=== PATIENT | male | born 1965 | race Caucasian/White ===

== ENCOUNTER 2018-08-09 23:17 | Emergency (ER) | payer BC ==
[2018-08-09] MEDS ORDERED: LISI20TA29 PO (23:40)
--- NOTE | 2018-08-09 23:40 | ER Report ---
History and Physical Time Seen By MD: 23:39 Hx. of Stated Complaint: stomache pain for 4 or 5 hours HPI/ROS CHIEF COMPLAINT: Epigastric and right upper quadrant pain, nausea HISTORY OF PRESENT ILLNESS: 52-year-old male here for the football game, was tailgating this afternoon. His is at home, vomiting likely secondary to food poisoning. He ate same food. He is complaining of diffuse epigastric and right upper quadrant pain. Patient notes the pain started in the right upper quadrant inspected to the epigastrium. He has severe nausea. It's been coming in waves. He's had no vomiting or diarrhea. She denies history of previous abdominal surgery. Patient denies change in bowel habits or dysuria or hemat uria. REVIEW OF SYSTEMS: Respiratory: No cough, no dyspnea. Cardiovascular: No chest pain, no palpitations. Gastrointestinal: As above Musculoskeletal: No back pain. Allergies: Coded Allergies: No Known Drug Allergies (Unverified , 08/09/18) Home Meds Active Scripts Ondansetron (ZOFRAN ODT) 4 Mg Tab.rapdis, 4 MG PO every 6 hours PRN for NAUSEA/VOMITING, #12 TAB TAKE 1 TABLET BY MOUTH EVERY 12 HOURS Prov:ROBERTOVIKI Haddad DO 08/10/18 Hydrocodone Bit/Acetaminophen (HYDROCODON-ACETAMINOPHEN 5-325) 1 Each Tablet, 1 EACH PO Q4-6H PRN for PAIN, #15 TAKE ONE TABLET BY MOUTH EVERY 4-6 HOURS NEEDED FOR PAIN Prov:ROBERTOVIKI Haddad DO 08/10/18 Reported Medications Atorvastatin Calcium (LIPITOR) 40 Mg Tablet, 1 TAB PO QDAY, TAB 08/09/18 Lisinopril (LISINOPRIL) 20 Mg Tablet, 20 MG PO QDAY, TAB 08/09/18 Reviewed Nurses Notes: Yes Old Medical Records Reviewed: Yes Constitutional Vital Sign - Last 24 Hours 08/09/18 08/09/18 08/09/18 08/09/18 23:17 23:32 23:34 23:37 Temp 97.7 Pulse ? 67 Resp 18 B/P (MAP) 185/109 185/109 (134) Pulse Ox 96 O2 Delivery Room Air 08/09/18 08/10/18 08/10/18 08/10/18 23:47 00:00 00:02 00:17 Pulse 71 71 67 B/P (MAP) 175/110 (131) Pulse Ox 96 97 97 08/10/18 08/10/18 08/10/18 08/10/18 00:30 00:32 00:47 00:52 Pulse ? 81 B/P (MAP) 173/108 (129) Pulse Ox 97 95 92 08/10/18 08/10/18 08/10/18 08/10/18 01:00 01:07 01:22 01:30 Pulse 88 84 B/P (MAP) 165/106 (125) 142/95 (111) Pulse Ox 90 94 08/10/18 08/10/18 08/10/18 08/10/18 01:37 01:42 01:57 02:00 Pulse 90 95 84 B/P (MAP) 145/96 (112) Pulse Ox 92 92 90 08/10/18 08/10/18 08/10/18 08/10/18 02:05 02:20 02:30 02:35 Pulse ??? 83 86 B/P (MAP) 142/90 (107) Pulse Ox 91 92 90 08/10/18 08/10/18 02:40 02:55 Pulse 81 87 Pulse Ox 93 94 Intake and Output 08/09/18 08/09/18 08/10/18 15:00 23:00 07:00 Intake Total 1000 ml Balance 1000 ml Physical Exam Vital signs stable, afebrile, pulse ox normal General Appearance: The patient is alert, has no immediate need for airway protection and no current signs of toxicity. Moderate distress, slightly pale appearing, skin warm and dry Eyes: Pupils equal and round no injection. Respiratory: Chest is non tender, lungs are clear to auscultation. Cardiac: regular rate and rhythm Gastrointestinal: Abdomen is soft, moderate right upper quadrant tenderness with Woods sign, minimal epigastric tenderness, no masses, bowel sounds normal. Musculoskeletal: Neck: Neck is supple and non tender. No lymphadenopathy Extremities have full range of motion and are non tender., No edema Skin: No rashes or lesions. DIFFERENTIAL DIAGNOSIS: After history and physical exam differential diagnosis was considered for abdominal pain including but not limited to appendicitis, cholecystitis, gastritis, gastroenteritis, food poisoning, viral syndrome, pancreatitis and urinary tract infection. Medical Decision Making Data Points Result Diagram: 08/10/18 0008 08/10/187 Laboratory Hematology Test 08/09/18 23:35 08/10/18 00:08 Urine Color Yellow Urine Clarity Clear Urine pH 6.0 pH (4.8-9.5) Urine Specific [place] 1.015 Urine Protein Negative mg/dL (NEGATIVE) Urine Glucose (UA) Negative mg/dL (NEGATIVE) Urine Ketones Negative mg/dL (NEGATIVE) Urine Blood Negative (NEGATIVE) Urine Nitrite Negative (NEGATIVE) Urine Bilirubin Negative (NEGATIVE) Urine Urobilinogen 4.0 mg/dL (0.2-1.9) Urine Leukocyte Esterase Negative (NEGATIVE) Urine RBC <1 /HPF (0-2/HPF) Urine WBC <1 /HPF (0-5/HPF) Urine Squamous Epithelial Cells None /LPF (</=FEW) Urine Bacteria Negative /HPF (NONE-FEW) Urine Mucus None /HPF (NONE-FEW) Red Blood Count 4.38 M/uL (4.00-5.60) Mean Corpuscular Volume 96.6 fL (80.0-96.0) Mean Corpuscular Hemoglobin 33.2 pg (26.0-33.0) Mean Corpuscular Hemoglobin Concent 34.3 g/dL (32.0-36.0) Red Cell Distribution Width 12.6 % (11.5-14.5) Mean Platelet Volume 9.2 fL (7.2-11.1) Neutrophils (%) (Auto) 70.5 % (39.4-72.5) Lymphocytes (%) (Auto) 19.3 % (17.6-49.6) Monocytes (%) (Auto) 9.2 % (4.1-12.4) Eosinophils (%) (Auto) 0.7 % (0.4-6.7) Basophils (%) (Auto) 0.3 % (0.3-1.4) Nucleated RBC Relative Count (auto) 0.0 /100WBC Neutrophils # (Auto) 4.5 K/uL (2.0-7.4) Lymphocytes # (Auto) 1.2 K/uL (1.3-3.6) Monocytes # (Auto) 0.6 K/uL (0.3-1.0) Eosinophils # (Auto) 0.0 K/uL (0.0-0.5) Basophils # (Auto) 0.0 K/uL (0.0-0.1) Nucleated RBC Absolute Count (auto) 0.00 K/uL Sodium Level 135 mmol/L (137-145) Potassium Level 3.8 mmol/L (3.5-5.0) Chloride Level 101 mmol/L (98-107) Carbon Dioxide Level 22 mmol/L (22-30) Blood Urea Nitrogen 12 mg/dl (9-21) Creatinine 0.80 mg/dl (0.66-1.25) Glomerular Filtration Rate Calc > 60.0 Random Glucose 125 mg/dl (75-110) Calcium Level 8.5 mg/dl (8.4-10.2) Total Bilirubin 0.8 mg/dl (0.2-1.3) Aspartate Amino Transf (AST/SGOT) 162 U/L (0-35) Alanine Aminotransferase (ALT/SGPT) 140 U/L (0-56) Alkaline Phosphatase 180 U/L (0-126) Total Protein 7.4 g/dl (6.3-8.2) Albumin 3.7 g/dl (3.5-5.0) Amylase Level 69 U/L (0-110) Lipase 264 U/L (23-300) Chemistry Test 08/09/18 23:35 08/10/18 00:08 Urine Color Yellow Urine Clarity Clear Urine pH 6.0 pH (4.8-9.5) Urine Specific [place] 1.015 Urine Protein Negative mg/dL (NEGATIVE) Urine Glucose (UA) Negative mg/dL (NEGATIVE) Urine Ketones Negative mg/dL (NEGATIVE) Urine Blood Negative (NEGATIVE) Urine Nitrite Negative (NEGATIVE) Urine Bilirubin Negative (NEGATIVE) Urine Urobilinogen 4.0 mg/dL (0.2-1.9) Urine Leukocyte Esterase Negative (NEGATIVE) Urine RBC <1 /HPF (0-2/HPF) Urine WBC <1 /HPF (0-5/HPF) Urine Squamous Epithelial Cells None /LPF (</=FEW) Urine Bacteria Negative /HPF (NONE-FEW) Urine Mucus None /HPF (NONE-FEW) White Blood Count 6.4 k/uL (4.5-11.0) Red Blood Count 4.38 M/uL (4.00-5.60) Hemoglobin 14.5 g/dL (14.0-18.0) Hematocrit 42.3 % (42.0-52.0) Mean Corpuscular Volume 96.6 fL (80.0-96.0) Mean Corpuscular Hemoglobin 33.2 pg (26.0-33.0) Mean Corpuscular Hemoglobin Concent 34.3 g/dL (32.0-36.0) Red Cell Distribution Width 12.6 % (11.5-14.5) Platelet Count 105 K/uL (150-450) Mean Platelet Volume 9.2 fL (7.2-11.1) Neutrophils (%) (Auto) 70.5 % (39.4-72.5) Lymphocytes (%) (Auto) 19.3 % (17.6-49.6) Monocytes (%) (Auto) 9.2 % (4.1-12.4) Eosinophils (%) (Auto) 0.7 % (0.4-6.7) Basophils (%) (Auto) 0.3 % (0.3-1.4) Nucleated RBC Relative Count (auto) 0.0 /100WBC Neutrophils # (Auto) 4.5 K/uL (2.0-7.4) Lymphocytes # (Auto) 1.2 K/uL (1.3-3.6) Monocytes # (Auto) 0.6 K/uL (0.3-1.0) Eosinophils # (Auto) 0.0 K/uL (0.0-0.5) Basophils # (Auto) 0.0 K/uL (0.0-0.1) Nucleated RBC Absolute Count (auto) 0.00 K/uL Glomerular Filtration Rate Calc > 60.0 Calcium Level 8.5 mg/dl (8.4-10.2) Total Bilirubin 0.8 mg/dl (0.2-1.3) Aspartate Amino Transf (AST/SGOT) 162 U/L (0-35) Alanine Aminotransferase (ALT/SGPT) 140 U/L (0-56) Alkaline Phosphatase 180 U/L (0-126) Total Protein 7.4 g/dl (6.3-8.2) Albumin 3.7 g/dl (3.5-5.0) Amylase Level 69 U/L (0-110) Lipase 264 U/L (23-300) Urinalysis Test 08/09/18 23:35 Urine Color Yellow Urine Clarity Clear Urine pH 6.0 pH (4.8-9.5) Urine Specific [place] 1.015 Urine Protein Negative mg/dL (NEGATIVE) Urine Glucose (UA) Negative mg/dL (NEGATIVE) Urine Ketones Negative mg/dL (NEGATIVE) Urine Blood Negative (NEGATIVE) Urine Nitrite Negative (NEGATIVE) Urine Bilirubin Negative (NEGATIVE) Urine Urobilinogen 4.0 mg/dL (0.2-1.9) Urine Leukocyte Esterase Negative (NEGATIVE) Urine RBC <1 /HPF (0-2/HPF) Urine WBC <1 /HPF (0-5/HPF) Urine Squamous Epithelial Cells None /LPF (</=FEW) Urine Bacteria Negative /HPF (NONE-FEW) Urine Mucus None /HPF (NONE-FEW) EKG/Imaging Imaging Results: Ultrasound of the ultrasound of the gallbladder was obtained. The results of the study are Limited ultrasound of the abdomen: Indication: Right upper quadrant pain. Technique: Routine imaging, with Doppler. Comparison: None. Gallbladder: Distended, measuring approximately 10.8 cm in length. There appears to be a small amount of sludge in the lumen. No stones are clearly identified. There is no thickening or edema of the wall. Biliary tree: Normal in caliber. The CBD measures less than 4 mm. Liver: Upper limits of normal in size. The right lobe measures approximately 18 cm. There is diffuse increased parenchymal echogenicity, compatible with fatty infiltration. No focal liver lesions are identified. The portal vein is patent with antegrade flow. Pancreas: Not adequately visualized. Spleen: Not evaluated. Kidneys: The right kidney measures 10.9 x 5.5 x 5.2 cm. There is a tiny cortical cyst in the midportion. There is no evidence of solid mass, calculus, or dilatation of the collecting structures. The left kidney was not evaluated. Aorta and IVC: Unremarkable, as visualized. Ascites: None seen. IMPRESSION: The gallbladder is distended. There is a small amount of sludge in the lumen. No stones are clearly identified. The study was read by the radiologist. I viewed the images myself on the PACS system. ED Course/Re-evaluation Clinical Indication for ER IV: Hydration, IV Access ED Course Patient was admitted to an examination room. H&P was done. The differential diagnoses was considered. On clinical examination. Patient has right upper quadrant and epigastric tenderness. He is a Woods sign. His LFTs are eleva joi, but he has no previous labs for comparison. He is also undergoing treatment for hemachromatosis with phlebotomy. Gallbladder ultrasound was performed which showed sludge and a large gallbladder, but no gallbladder wall thickening. His white blood cell count is normal. Patient be discharged home. A conservative treatment plan of clear liquid diet, medication for nausea and pain relief. He's advised to follow-up with his doctor when he returns home in a few days. Likely need a hiatus scan. His old laboratory studies can be compared. On further diagnosis and treatment can be completed by his primary care physician. Decision to Disposition Date: Aug 10, 2018 Decision to Disposition Time: 02:44 Depart Departure Latest Vital Signs Vital Signs Date Time Temp Pulse Resp B/P (MAP) Pulse Ox O2 Delivery O2 Flow Rate FiO2 08/10/18 02:55 87 94 08/10/18 02:30 142/90 (107) 08/09/18 23:34 97.7 18 Room Air Impression: Primary Impression: Right upper quadrant abdominal pain Additional Impressions: Enlarged gallbladder Abnormal LFTs Condition: Improved Disposition: HOME OR SELF-CARE New Scripts Ondansetron (ZOFRAN ODT) 4 Mg Tab.rapdis 4 MG PO every 6 hours PRN for NAUSEA/VOMITING, #12 TAB TAKE 1 TABLET BY MOUTH EVERY 12 HOURS Prov: VIKI MEJIA DO 08/10/18 Hydrocodone Bit/Acetaminophen (HYDROCODON-ACETAMINOPHEN 5-325) 1 Each Tablet 1 EACH PO Q4-6H PRN for PAIN, #15 TAKE ONE TABLET BY MOUTH EVERY 4-6 HOURS NEEDED FOR PAIN Prov: VIKI MEJIA DO 08/10/18 Patient Instructions: Abdominal Pain (ED), Clear Liquid Diet (ED) Additional Instructions: Follow clear liquid diet for 24-48 hours and advance to Joseluis diet, bananas, rice, applesauce and toast Avoid fatty or greasy food Follow-up with your primary care doctor upon returning home. Problem Qualifiers VIKI MEJIA DO Aug 09, 2018 23:40
[2018-08-09] MEDS ORDERED: ATOR40TA24 PO (23:41)
[2018-08-09] MEDS ORDERED: NS(*) 0.9% 1000 ML BAG 1,000 ML IV ONE (23:44)
[2018-08-09] MEDS ORDERED: KETOROLAC 30 MG/ML VIAL IVP ONE (23:45)
[2018-08-09] MEDS ORDERED: ONDANSETRON 4 MG/2 ML VIAL IVP ONE (23:45)
[2018-08-10] MEDS ORDERED: fentaNYL CITR 100 MCG/2 ML AMP IVP ONE (00:30)
[2018-08-10 00:43] LABS: PLATELET COUNT, AUTOMATED 105 K/uL (150-450)
[2018-08-10 02:30] VITALS: BP 142/90
--- NOTE | 2018-08-10 02:30 | RADIOLOGY IMAGING REPORT ---
[place] [facility] [place] NAME: Lynn Grossman : 1965 MR: [id number] V: [id number] EXAM DATE: ORDERING PHYSICIAN: VIKI MEJIA TECHNOLOGIST: Location: [facility] Patient: Lynn Grossman : 1965 Visit/Account:[id number] Date of Sevice: 08/10/2018 Limited ultrasound of the abdomen: Indication: Right upper quadrant pain. Technique: Routine imaging, with Doppler. Comparison: None. Gallbladder: Distended, measuring approximately 10.8 cm in length. There appears to be a small amount of sludge in the lumen. No stones are clearly identified. There is no thickening or edema of the wal l. Biliary tree: Normal in caliber. The CBD measures less than 4 mm. Liver: Upper limits of normal in size. The right lobe measures approximately 18 cm. There is diffuse increased parenchymal echogenicity, compatible with fatty infiltration. No focal liver lesions are id entified. The portal vein is patent with antegrade flow. Pancreas: Not adequately visualized. Spleen: Not evaluated. Kidneys: The right kidney measures 10.9 x 5.5 x 5.2 cm. There is a tiny cortical cyst in the midporti on. There is no evidence of solid mass, calculus, or dilatation of the collecting structures. The left kidney was not evaluated. Aorta and IVC: Unremarkable, as visualized. Ascites: None seen. IMPRESSION: The gallbladder is distended. There is a small amount of sludge in the lumen. No stones a re clearly identified. Report Dictated By: Alfredo Kitchen MD at 08/10/2018 2:22 AM Report E-Signed By: Alfredo Kitchen MD at 08/10/2018 2:26 AM WSN:[id number]
[2018-08-10] MEDS ORDERED: ACET/HYDROC 5/325MG TH ER ONLY 2 TAB/BOTTLE PO ONE (02:45)
[2018-08-10] MEDS ORDERED: ONDANSETRON 4 MG ODT TH SL ONE (02:45)
[2018-08-10] MEDS ORDERED: ONDA4TAB PO (02:47)
[2018-08-10] MEDS ORDERED: LOR5/325 PO (02:47)
[2018-08-10] MEDS ORDERED: MORPHINE 4 MG/ML SDV IVP ONE (02:50)
== END 2018-08-10 02:57 | disposition home or self-care (01) ==
LOC: ER 23:53
DX: R11.0 Nausea (principal); R10.11 Right upper quadrant pain; K82.8 Other specified diseases of gallbladder; R79.89 Other specified abnormal findings of blood chemistry
CPT/HCPCS: 76705; 81001; 82150; 83690; 85025; 96361; 96374; 96375; 99284; J1885; J2270; J2405; J3010; J7030; S0119; 82040; 82247; 82310; 82374; 82435; 82565; 82947; 84075; 84132; 84155; 84295; 84450; 84460; 84520